=== PATIENT | male | born 1955 | race Caucasian/White ===

== ENCOUNTER 2016-10-25 07:48 | Inpatient (IN) | payer BC ==
[2016-10-21 14:42] VITALS: BMI 37.0
[~2016-10-25] VITALS: Ht 185.4 cm; Wt 128.6 kg
[2016-10-25] VITALS (9 sets, daily range): BP systolic 92–155; BP diastolic 61–117; PULSE 70–83; TEMP 34.8–36.9; O2SAT 94–99; Ht 185.4 cm; Wt 128.6 kg
--- NOTE | 2016-10-25 07:27 | History & Physical Bridge Note ---
H&P Re-Evaluation Bridge Note: I have examined the patient, reviewed the History & Physical and in the interval since the performance of the History & Physical I have noted the following changes of clinical significance: No changes noted
[~2016-10-25 07:48] MED LIST: APRE1TAB3 PO; CEFAZOLIN 3000 MG/65 ML D5W IV SCH; GABA-113 PO; HYDR-5688 PO; IBUP-1451 PO; LACTATED RINGER'S 1000ML 1,000 ML IV SCH; NXM/40 PO; PROP40TA5 PO; PRVC10 PO
--- NOTE | 2016-10-25 08:19 | HISTORY & PHYSICAL EXAMINATION ---
DATE OF ADMISSION: 10/25/2016 HISTORY OF PRESENT ILLNESS: The patient was seen in our office with about 2 weeks ago with complaint of pain starting 08/17/2016. No specific accident, trauma or fall. It then started to radiate down his right leg. He has been off work since 09/01/2012 secondary to the above-mentioned complaints. Pain involves the right buttock, lateral thigh to the knee. He reports his legs would go numbness as he walks or stands. Lying flat reproduces his pain also. He is most comfortable sitting while applying a heating pad and a pillow behind his back. He has had 2 issues over the past 2 weeks of waking up in the morning and losing control of his urine. No bowel changes. He still has a normal pressure and sensation, otherwise. He has been urged to lastly go to [place] if this happened again. He has trialed pain management injections in [place] with a maximum of 3 days of relief. Takes Motrin for pain control. PAST MEDICAL HISTORY: Significant for GERD, gout, and psoriasis. PAST SURGICAL HISTORY: Significant for knee replacement, hernia repair. ALLERGIES: None listed. MEDICATIONS: Motrin. SOCIAL HISTORY: He is . He still works. He uses chewing tobacco. Alcohol is beer occasionally. REVIEW OF SYSTEMS: Significant for fatigue and weakness, leg swelling, difficulty walking, headaches, muscle weakness and insomnia. FAMILY HISTORY: Noncontributory. PHYSICAL EXAMINATION: VITAL SIGNS: He is 6 feet 1 inch and 276 pounds. HEENT: Speech appropriate. CARDIOPULMONARY: No gross abnormalities. ABDOMEN: Soft, nontender. GENITOURINARY: Deferred. NEUROLOGIC: Cranial nerves II-XII grossly intact. MUSCULOSKELETAL: He is quite uncomfortable during our exam. He ambulates with an antalgic gait to the right. He is unable to toe walk and heel walk bilaterally. He has positive tension sign on the right. No evidence of ankle clonus. He has breakaway weakness over bilateral quadriceps, otherwise strength is intact. ASSESSMENT: Spondylolisthesis with the pars defect at L5-S1. L3-4 right-sided disc herniation creating severe right-sided neural foraminal stenosis. PLAN: At this point in time, we have reviewed surgical intervention sooner rather than later due to some of his urinary issues and pain. Surgery would require lumbar decompression with instrumented fusion L3-4, L4-5, and L5-S1. This would address his disc herniation at L3-4, his facet cyst at L4-5, and spondylolisthesis L5-S1. Risks, benefits, pros, and cons were outlined in detail. The patient would like to proceed with surgical planning. EFRA
[2016-10-25 08:35] LABS: BASO % 0.2 %; BASO ABS # 0.03 K/uL (0-0.2); EOS % 1.3 %; HEMATOCRIT 51.6 % (42-52); IG% 3.9 %; LYMPH % 19.9 %; LYMPH ABS # 3.17 K/uL (1.2-3.4); MEAN CELL VOLUME 90.7 fL (80-100); MEAN CORPUSCULAR HEMOGLOBIN 30.6 pg (25-34); MEAN PLATELET VOLUME 9.4 fL (7.4-10.4); NEUT % 66.7 %; PLATELET COUNT 154 K/uL (130-400); RED BLOOD COUNT 5.69 M/uL (4.7-6.1); WHITE BLOOD COUNT 15.96 K/uL (4.8-10.8)
[2016-10-25] MEDS ORDERED: DOCU100C PO (08:36)
[2016-10-25 09:13] LABS: BUN/CREATININE RATIO 13.9 (10-20); CALCIUM 8.8 mg/dl (8.5-10.1); CREATININE 0.99 mg/dl (0.60-1.40); POTASSIUM 3.7 mmol/L (3.5-5.1)
[2016-10-25] MEDS ORDERED: LACTATED RINGER'S 1000ML 1,000 ML IV PRN (09:20)
[2016-10-25] MEDS ORDERED: MoRPHine SULFATE 10 MG/ML CARP/VIAL IV PRN (09:30)
[2016-10-25] MEDS ORDERED: ONDANSETRON INJ 2 MG/ML 2 ML VIAL IV PRN ×2 (09:30→13:00)
[2016-10-25 09:34] LABS: COMPLETE YES; MEAN CORPUSCULAR HGB CONC 33.7 g/dl (32-36)
[2016-10-25] MEDS ORDERED: FENTANYL CITRATE INJ 50 MCG/1 ML 2 ML VIAL ONE ×6 (09:35→13:08)
[2016-10-25] MEDS ORDERED: MIDAZOLAM HCL 1 MG/ML 2ML VIAL ONE (09:35)
[2016-10-25] MEDS ORDERED: BACITRACIN 50000 UNIT VIAL ONE (09:52)
[2016-10-25] MEDS ORDERED: SODIUM CHLORIDE 0.9% PF 50 ML VIAL ONE (09:52)
[2016-10-25] MEDS ORDERED: BUPIVACAINE/EPINEPHRINE 0.5% MPF 1:200,000 30 ML VIAL ONE (09:52)
[2016-10-25] MEDS ORDERED: HYDROmorphone INJ 2 MG/ML SYR/VIAL ONE ×3 (10:43→13:08)
[2016-10-25] MEDS ORDERED: LIDOCAINE HCL 2% 2 ML VIAL (20MG/ML) ONE (11:44)
[2016-10-25] MEDS ORDERED: DEXAMETHASONE SOD INJ 4 MG/ML VIAL ONE (11:44)
[2016-10-25] MEDS ORDERED: ROCURONIUM BROMIDE 10 MG/ML 5 ML VIAL ONE (11:44)
[2016-10-25] MEDS ORDERED: PROPOFOL IV EMULSION 10 MG/ML 20 ML VIAL IV ONE (11:44)
[2016-10-25] MEDS ORDERED: SODIUM CHLORIDE 0.9% 1000ML 1,000 ML IV SCH (12:59)
--- NOTE | 2016-10-25 12:59 | [facility] Post Operative Brief Note ---
Immediate Operative Summary Operative Date Oct 25, 2016. Pre-Operative Diagnosis Spondylolisthesis with the pars defect at L5-S1. L3-4 right-sided disc herniation creating severe right-sided neural foraminal stenosis. Post-Operative Diagnosis Spondylolisthesis with the pars defect at L5-S1. L3-4 right-sided disc herniation creating severe right-sided neural foraminal stenosis. Procedure(s) Performed L3-S1 Lumbar Decompression, Posterior Spinal Fusion, Instrumentation, Interbody fusion with application of Interbody cage at L3-L4, L5-S1 Application of Ca and Bone Morphogenetic Protein Surgeon Dr. Yang Motor Equipment Commanding Officer Surgeon(s) Annamaria Escalera PA-C Estimated Blood Loss 900 mL Findings stenosis/hnp Specimens None per Surgeon
[2016-10-25] MEDS ORDERED: FAMOTIDINE 20 MG TAB PO PRN (13:00)
[2016-10-25] MEDS ORDERED: PROMETHAZINE HCL INJ 12.5 MG in SODIUM CHLORIDE 0.9% 50ML 50 ML IV PRN (13:00)
[2016-10-25] MEDS ORDERED: ALUMINUM/MAGNESIUM SUSP 30 ML UDC PO PRN (13:00)
[2016-10-25] MEDS ORDERED: LORAZEPAM INJ 0.5 MG in SYRINGE 0.75 ML IV PRN (13:00)
[2016-10-25] MEDS ORDERED: DO NOT ADMINISTER FLU VACCINE PRN ×3 (13:00)
[2016-10-25] MEDS ORDERED: HYDROmorphone INJ 0.5 MG/0.5 ML SYR IV PRN (13:00)
[2016-10-25] MEDS ORDERED: BISACODYL 10 MG SUPP PR PRN (13:00)
[2016-10-25] MEDS ORDERED: ACETAMINOPHEN 500 MG TAB PO PRN (13:00)
[2016-10-25] MEDS ORDERED: SOD PHOSPHATE/SOD BIPHOSPHATE ENEMA 132 ML BTL PR PRN (13:00)
[2016-10-25] MEDS ORDERED: NALOXONE HCL 0.4 MG/1 ML VIAL/CARP IV PRN ×2 (13:00)
[2016-10-25] MEDS ORDERED: hydrOXYzine HCL 25 MG TAB PO PRN (13:00)
[2016-10-25] MEDS ORDERED: ACETAMINOPHEN IV 100 ML IV PRN (13:00)
[2016-10-25] MEDS ORDERED: LORAZEPAM 0.5 MG TAB PO PRN (13:00)
[2016-10-25] MEDS ORDERED: METOCLOPRAMIDE HCL INJ 5 MG/ML 2 ML VIAL IV PRN (13:00)
[2016-10-25] MEDS ORDERED: DO NOT ADMINISTER PNEUMOCOCCAL VACCINE PRN ×2 (13:00)
[2016-10-25] MEDS ORDERED: MAGNESIUM HYDROXIDE SUSP 30 ML UDC PO PRN (13:00)
[2016-10-25] MEDS ORDERED: FLOSEAL HEMOSTATIC MATRIX 10ML TOP ONE (13:03)
[2016-10-25] MEDS ORDERED: NEOSTIGMINE METHYLSULFATE 1 MG/ML 10ML VIAL ONE (13:09)
[2016-10-25] MEDS ORDERED: EpHEDrine SULFATE 50MG/5ML SYR ONE (13:09)
[2016-10-25] MEDS ORDERED: PHENYLEPHRINE 100MCG/ML 5ML SYR ONE (13:09)
[2016-10-25] MEDS ORDERED: KETOROLAC TROMETHAMINE 30 MG/ML VIAL ONE (13:09)
[2016-10-25] MEDS ORDERED: GLYCOPYRROLATE INJ 0.2 MG/ML VIAL ONE (13:09)
[2016-10-25] MEDS ORDERED: ONDANSETRON INJ 2 MG/ML 2 ML VIAL ONE (13:09)
--- NOTE | 2016-10-25 13:15 | DIAGNOSTIC IMAGING REPORT ---
INTRAOPERATIVE RADIOGRAPHS CLINICAL HISTORY: L3-S1 spinal fusion. Fluoroscopy time: 32 seconds. FINDINGS: 2 spot fluoroscopic views of the lumbar spine are presented. There is evidence of discectomy at L3-L4 and L5-S1. There as been laminectomy and posterior fusion from L3 -S1. Interpedicular screws are present at all levels. The orthopedic hardware appears intact. IMPRESSION: Intraoperative images from L3 -S1 spinal fusion as above. Electronically signed by: Brant Mccarty M.D. 10/25/2016 1:13 PM Dictated Date/Time: 10/25/2016 1:12 PM
[2016-10-25] MEDS ORDERED: HYDROmorphone HCL 0.5MG/ML 50 ML CASSETTE ONE (13:24)
--- NOTE | 2016-10-25 13:24 | OPERATIVE REPORT ---
DATE OF OPERATION: 10/25/2016 PREOPERATIVE DIAGNOSES: Spinal stenosis, herniated nucleus pulposus with spondylolisthesis. POSTOPERATIVE DIAGNOSES: Same. PROCEDURES PERFORMED: 1. Lumbar decompression and medial facetectomy and foraminotomy L2-L3, L3-L4, L4-L5, L5-S1. 2. Posterior spinal fusion L3-L4, L4-L5, L5-S1. 3. Placement of posterior segmental instrumentation using Orthros rods and screws, L3-L4, L4-L5 and L5-S1 including a crosslink. 4. Interbody fusion L3-L4 and L5-S1. 5. Placement of PEEK cage 15 x 26 at L3-L4 and 15 x 26 at L5-S1. 6. Placement of locally harvested morselized autograft in posterior gutters. 7. Placement of Infuse collagen sponge combined with Mastergraft in posterior gutters and Ca bone grafting in the interbody spaces. SURGEON: Dr. Carlos Yang. DIRECTOR OF RESEARCH CENTER: DENA Lizama. Due to the complex nature of the procedure, the entire surgery was performed with the golf player assistant of DENA Lizama. The speech language pathology assistant, under direct supervision, was involved in the actual performance of all aspects of the surgical procedure including hemostasis, tissue retraction and incision, instrument management, patient positioning, and wound closure. ANESTHESIA: General. DISPOSITION: The patient was awakened and taken to PACU in stable condition. HISTORY OF PATIENT'S PROBLEMS: This is a 61-year-old male who presents with above-mentioned diagnoses. After failing an extensive course of nonoperative care, elected to undergo the above-mentioned procedure. Risks, benefits, pros, cons, and alternatives were outlined in detail preoperatively. DESCRIPTION OF PROCEDURE: The patient was met with preoperatively, case discussed and all questions were addressed. At that point, patient was taken back to the operative suite and after undergoing successful general intubation by the department of anesthesia, he was placed in prone position on [place] table atop Atif frame. All bony prominences were well padded and the eyes were inspected to ensure there was no external pressure placed upon them. At this point, lumbar spine was prepped and draped in normal sterile fashion. Sharp dissection with the assistance of Bovie cautery was performed down to and exposing the lamina and transverse processes of L3, L4, L5 and sacral ala bilaterally. From a caudal to cephalad fashion, complete laminectomy of L5, L4, L3 and partial laminectomy of L2 was performed addressing severe lateral recess stenosis, foraminal disease at L3-L4 and an obvious pars defect at L5-S1 level bilaterally. Pedicle screws were then placed in L3, L4, L5 and S1 levels bilaterally with assistance of fluoroscopy, and appropriate size gato provisionally placed. Through a transforaminal approach on the right, a complete discectomy of L5-S1 was performed, endplates curetted to subcortical bleeding bone and a 15 x 26 mm PEEK cage filled with Ca bone grafting tapped into position. I then proceeded to L3-L4 and again through a transforaminal approach on the right, a complete discectomy was performed, endplates curetted to subcortical bleeding bone and a 15 x 26 mm PEEK cage filled with Ca bone grafting tapped into position. Rods were then compressed, locked into final position bilaterally including a crosslink inserted and placed. The transverse processes of L3, L4, L5 and sacral ala were then burred to subcortical bleeding bone. Infuse collagen sponge combined with Mastergraft and locally harvested morselized autograft was placed in the posterior gutters. A 7 flat YNES drain was inserted. Incision was closed with 1-0 Vicryl in the fascia, 2-0 Vicryl subcutaneously, 4-0 Monocryl for final skin closure. Steri-Strips and sterile dressing placed. The patient was awakened and taken to PACU in stable condition. I attest to the content of the Intraoperative Record and any orders documented therein. Any exceptio ns are noted below.
[2016-10-25] MEDS: FENTANYL CITRATE INJ 50 MCG/1 ML 2 ML VIAL IV PRN ×2 (13:35→13:40)
--- NOTE | 2016-10-25 14:49 | Anesthesiology Progress Note ---
Anesthesia Post Op Note Date & Time Oct 25, 2016 at 14:49 Vital Signs Pain Intensity: 0 Vital Signs Past 12 Hours Date Time Temp Pulse Resp B/P Pulse Ox O2 Delivery O2 Flow Rate FiO2 10/25/16 14:25 71 16 127/72 98 Nasal Cannula 3 10/25/16 14:15 73 14 143/92 96 Nasal Cannula 3 10/25/16 14:05 36.5 85 14 128/97 95 Nasal Cannula 3 10/25/16 13:55 71 14 133/84 95 Mask 5 10/25/16 13:45 67 16 120/85 95 Mask 10 10/25/16 13:35 80 16 116/84 97 Mask 10 10/25/16 13:25 36.5 82 16 113/78 94 Mask 10 10/25/16 08:29 36.4 74 20 136/92 96 Room Air Notes Mental Status: alert / awake / arousable, participated in evaluation Pt Amnestic to Procedure: Yes Nausea / Vomiting: adequately controlled Pain: adequately controlled Airway Patency, RR, SpO2: stable & adequate BP & HR: stable & adequate Hydration State: stable & adequate Anesthetic Complications: no major complications apparent
[2016-10-25] MEDS: HYDROmorphone HCL 0.5MG/ML 50 ML CASSETTE IV PRN ×2 (15:20→22:52)
[2016-10-25] MEDS ORDERED: HYDROmorphone INJ 1 MG/ML SYR IV PRN (15:30)
[2016-10-25] MEDS: GABAPENTIN 300 MG CAP PO SCH ×2 (16:54→20:34)
[2016-10-25] MEDS: LACTATED RINGER'S 1000ML 1,000 ML IV SCH ×2 (16:55→20:39)
[2016-10-25] MEDS: PROPRANOLOL HCL 80 MG TAB PO SCH ×2 (16:55→20:34)
[2016-10-25] MEDS: CEFAZOLIN IV 3,000 MG in DEXTROSE 5% 50ML 50 ML IV SCH (18:36)
[2016-10-25] MEDS: DEXAMETHASONE INJ 6 MG in SYRINGE 0 ML IV SCH (18:37)
--- NOTE | 2016-10-25 18:58 | Medical Consult ---
Consultation Date of Consultation: Oct 25, 2016. Attending Physician: Carlos Yang D.O. Reason for Consultation: medical mgmt History of Present Illness This is a 61 y/o male with PMHx of Spinal Stenosis/HNP, HTN, Dyslipidemia and other problems as outlined below who presents POD o s/p lumbar decompression performed by Dr. Yang. Pt is currently rating his back pain at an 8/10 however he is not using the dry cell tester as much as he could be as he keeps dosing off. The medicine does give him adequate relief when he uses it. Pt just finished his dinner with no issues. Pt has chronic LE edema due to venous insufficiency. Pt denies chest pain, SOB, abd pain, N/V, bowel or bladder issues, worsening LE edema, calf pain, lightheadedness/dizziness. Past Medical/Surgical History Medical Problems: (1) Dyslipidemia Status: Chronic (2) GERD (gastroesophageal reflux disease) Status: Chronic (3) HTN (hypertension) Status: Chronic (4) Psoriasis Status: Chronic Surgical Problems: (1) History of inguinal hernia repair Status: Resolved (2) S/P right knee arthroscopy Status: Resolved Social History Smoking Status: Never Smoker Alcohol Use: occasionally Drug Use: none Housing Status: lives with family Allergies Coded Allergies: No Known Allergies (Unverified , 10/25/16) Home Medications Active Reported Stool Softener (Docusate Sodium) 100 Mg Cap 100 Mg PO BID PRN Grethel 5MG/325MG (Acetaminophen/Hydrocodone Bitart) Tab 1 Tab PO QID 30 Days PRN PAIN Pravastatin Sodium (Pravastatin Sod) 10 Mg Tab 10 Mg PO HS Motrin (Ibuprofen) 800 Mg Tab 800 Mg PO HS PRN Propranolol Hcl 40 Mg Tab 1 Tab PO TID Otezla (Apremilast) 30 Mg Tab 30 Mg PO BID Neurontin (Gabapentin) 300 Mg Cap 300 Mg PO TID Nexium (Esomeprazole Magnesium) 40 Mg Capcr 40 Mg PO QAM Current Inpatient Medications Current Inpatient Medications Medications (Trade) Dose Ordered Sig/Be Route Start Time Stop Time Status Last Admin Dose Admin Dexamethasone Sodium Phosphate 6 mg/Syringe 1.5 ml @ 1 mls/min Q8H IV 10/25/16 18:00 10/26/16 10:02 10/25/16 18:37 1 MLS/MIN Promethazine HCl/ Sodium Chloride (Phenergan Inj/ Nss 50ml) 50.5 ml @ 202 mls/hr Q6H PRN IV 10/25/16 13:00 11/24/16 12:59 Ondansetron HCl (Zofran Inj) 4 mg Q6H PRN IV 10/25/16 13:00 11/24/16 12:59 Metoclopramide HCl (Reglan Inj) 10 mg Q6H PRN IV 10/25/16 13:00 11/24/16 12:59 Lorazepam 0.5 mg 0.5 mg Q8H PRN PO 10/25/16 13:00 11/24/16 12:59 Lorazepam/Syringe (Ativan Inj/ Syringe) 1 ml @ 1 mls/min Q8H PRN IV 10/25/16 13:00 11/24/16 12:59 Pneumococcal Polysaccharide Vaccine 1 ea PRN PRN N/A 10/25/16 13:00 11/24/16 12:59 Influenza Virus Vacc Triv Types A&B 1 ea PRN PRN N/A 10/25/16 13:00 11/24/16 12:59 Polyethylene (Miralax Powder Packet) 17 gm Q6 PO 10/27/16 06:00 11/26/16 05:59 Bisacodyl (Dulcolax Supp) 10 mg DAILY PRN MO 10/25/16 13:00 11/24/16 12:59 Magnesium Hydroxide (Milk Of Magnesia Susp) 30 ml DAILY PRN PO 10/25/16 13:00 11/24/16 12:59 Hydromorphone HCl (Dilaudid Inj) 0.5 mg Q3H PRN IV 10/25/16 13:00 11/08/16 12:59 Future hold Oxycodone HCl 5-10mg prn moderate to sev... Q4H PRN PO 10/26/16 06:00 11/09/16 05:59 Cefazolin Sodium 3000 mg/Dextrose 65 ml @ 100 mls/hr Q8H IV 10/25/16 18:00 10/26/16 02:38 10/25/16 18:36 100 MLS/HR Lactated Ringer's (Lr 1000ml) 1,000 ml @ 150 mls/hr Q6H40M IV 10/25/16 12:59 11/24/16 12:58 10/25/16 16:55 150 MLS/HR Acetaminophen 1000 mg 1,000 mg Q8H PRN PO 10/25/16 13:00 11/24/16 12:59 Acetaminophen (Ofirmev Iv) 100 ml @ 400 mls/hr Q8H PRN IV 10/25/16 13:00 11/24/16 12:59 Naloxone HCl (Narcan Inj) 0.1 mg Q5M PRN IV 10/25/16 13:00 11/24/16 12:59 Senna/Docusate Sodium (Senokot S Tab) 2 tab HS PO 10/25/16 21:00 11/24/16 20:59 Sodium Biphosphate/ Sodium Phosphate (Fleet Enema) 132 ml ONE PRN MO 10/25/16 13:00 11/24/16 12:59 Hydroxyzine HCl (Vistaril Tab) 25 mg Q8H PRN PO 10/25/16 13:00 11/24/16 12:59 Al Hydroxide/Mg Hydroxide (Maalox Susp) 30 ml Q6H PRN PO 10/25/16 13:00 11/24/16 12:59 Famotidine (Pepcid Tab) 20 mg Q12 PRN PO 10/25/16 13:00 11/24/16 12:59 Diphenhydramine HCl (Benadryl Cap) 25 mg Q6H PRN PO 10/25/16 13:00 11/24/16 12:59 Miscellaneous Information (Discontinue ELECTRONICS DESIGN ENGINEER) 1 ea TODAY@0600 PRN N/A 10/26/16 06:00 10/26/16 06:01 Naloxone HCl (Narcan Inj) 0.1 mg Q5M PRN IV 10/25/16 13:00 10/26/16 06:00 Hydromorphone HCl 25 mg 25 mg PRN PRN IV 10/25/16 13:00 10/26/16 06:00 10/25/16 15:20 25 MG Sodium Chloride (Nss 1000ml) 1,000 ml @ 15 mls/hr Q24H IV 10/25/16 12:59 10/26/16 06:00 Gabapentin (Neurontin Cap) 300 mg TID PO 10/25/16 14:00 11/24/16 13:59 10/25/16 16:54 300 MG Pravastatin Sodium (Pravachol Tab) 10 mg HS PO 10/25/16 21:00 11/24/16 20:59 Pantoprazole Sodium (Protonix Tab) 40 mg QAM PO 10/26/16 09:00 11/25/16 08:59 Propranolol HCl (Inderal Tab) 40 mg TID PO 10/25/16 14:00 11/24/16 13:59 10/25/16 16:55 40 MG Hydromorphone HCl (Dilaudid Inj) 1 mg Q3H PRN IV 10/25/16 15:30 11/08/16 15:29 Future hold Non-Formulary Medication (Non-Formulary Patient'S Own Med) 1 ea BID PO 10/25/16 21:00 11/24/16 20:59 Review of Systems Constitutional: + fatigue, No chills, No fever, No sweats, No weakness Eyes: No worsening of vision Respiratory: No cough, No shortness of breath Cardiovascular: + edema (chronic), No chest pain, No claudication Abdomen: No constipation, No diarrhea, No nausea, No pain, No vomiting Musculoskeletal: No calf pain Genitourinary - Male: + problem reported (lechuga) Neurologic: No weakness Psychiatric: No depression symptoms Endocrine: + fatigue Hematologic / Lymphatic: No abnormal bleeding/bruising Integumentary: No new/changing skin lesions Physical Exam Date Time Temp Pulse Resp B/P Pulse Ox O2 Delivery O2 Flow Rate FiO2 10/25/16 17:40 36.9 81 19 109/80 98 Nasal Cannula 4.0 10/25/16 16:43 36.5 83 16 155/117 97 Nasal Cannula 4.0 10/25/16 15:40 36.3 70 18 139/95 99 Nasal Cannula 4.0 10/25/16 15:10 34.8 72 20 137/93 99 Nasal Cannula 4.0 10/25/16 15:00 94 Nasal Cannula 4.0 10/25/16 14:40 36.3 77 18 92/61 94 Nasal Cannula 4.0 10/25/16 14:40 94 Nasal Cannula 4.0 10/25/16 14:25 71 16 127/72 98 Nasal Cannula 3 10/25/16 14:15 73 14 143/92 96 Nasal Cannula 3 10/25/16 14:05 36.5 85 14 128/97 95 Nasal Cannula 3 10/25/16 13:55 71 14 133/84 95 Mask 5 10/25/16 13:45 67 16 120/85 95 Mask 10 10/25/16 13:35 80 16 116/84 97 Mask 10 10/25/16 13:25 36.5 82 16 113/78 94 Mask 10 10/25/16 08:29 36.4 74 20 136/92 96 Room Air General Appearance: WD/WN, no apparent distress, + obese, + pertinent finding ( Pt is laying comfortably in bed; drowsy) Head: normocephalic, atraumatic Eyes: normal inspection ENT: hearing grossly normal Neck: supple Respiratory/Chest: chest non-tender, no respiratory distress, + pertinent finding (course breath sounds) Cardiovascular: regular rate, rhythm, no murmur Abdomen/GI: normal bowel sounds, non tender, soft Back: + pertinent finding (surgical dressing in place over lumbar spine with 1 drain noted containing blood) Extremities/Musculoskelatal: normal inspection, no calf tenderness, + swelling (2+ pitting pedal edema bilat; SCDs in place bilat) Neurologic/Psych: alert, normal mood/affect, oriented x 3 Skin: normal color, warm/dry Laboratory Results Last 24 Hours Test 10/25/16 08:10 White Blood Count 15.96 K/uL Red Blood Count 5.69 M/uL Hemoglobin 17.4 g/dL Hematocrit 51.6 % Mean Corpuscular Volume 90.7 fL Mean Corpuscular Hemoglobin 30.6 pg Mean Corpuscular Hemoglobin Concent 33.7 g/dl Platelet Count 154 K/uL Mean Platelet Volume 9.4 fL Neutrophils (%) (Auto) 66.7 % Lymphocytes (%) (Auto) 19.9 % Monocytes (%) (Auto) 8.0 % Eosinophils (%) (Auto) 1.3 % Basophils (%) (Auto) 0.2 % Neutrophils # (Auto) 10.65 K/uL Lymphocytes # (Auto) 3.17 K/uL Monocytes # (Auto) 1.27 K/uL Eosinophils # (Auto) 0.21 K/uL Basophils # (Auto) 0.03 K/uL RDW Standard Deviation 53.0 fL RDW Coefficient of Variation 16.0 % Immature Granulocyte % (Auto) 3.9 % Immature Granulocyte # (Auto) 0.63 K/uL Sodium Level 138 mmol/L Potassium Level 3.7 mmol/L Chloride Level 101 mmol/L Carbon Dioxide Level 28 mmol/L Anion Gap 9.0 mmol/L Blood Urea Nitrogen 14 mg/dl Creatinine 0.99 mg/dl Est Creatinine Clear Calc Drug Dose 112.9 ml/min Estimated GFR () 96.2 Estimated GFR (Non- 83.0 BUN/Creatinine Ratio 13.9 Random Glucose 89 mg/dl Calcium Level 8.8 mg/dl Assessment & Plan SPINAL STENOSIS/HNP S/P LUMBAR DECOMPRESSION -POD 0; surgery performed by Dr. Yang -post-operative pain well managed -monitor for acute blood loss with daily H&H -pt encouraged to utilize spirometry to prevent post-op infection -PT/OT -activity and wound care orders per ortho protocol -will continue to follow PSORIASIS -cont Otezla MIGRAINES -cont Propranolol DYSLIPIDEMIA -cont statin DVT PROPHYLAXIS -per ortho protocol CODE STATUS -FULL CODE status DISPO -per ortho. Pt seen in collaboration with Dr. Chin. Please see her addendum for further details. Thanks! ADDENDUM: I have seen and examined the patient and have discussed the case with the provider above. I agree with the assessment and plan as stated. Pt is doing well, tolerating PO, pain is controlled. Meron Chin,
[2016-10-25] MEDS ORDERED: DOCUSATE SODIUM/SENNA 50/8.6MG TAB PO SCH (21:00)
[2016-10-25] MEDS ORDERED: OTEZLA PO SCH (21:00)
[2016-10-25] MEDS ORDERED: PRAVASTATIN SOD 10 MG TAB PO SCH (21:00)
[2016-10-26] MEDS: CEFAZOLIN IV 3,000 MG in DEXTROSE 5% 50ML 50 ML IV SCH (02:02)
[2016-10-26] MEDS: DEXAMETHASONE INJ 6 MG in SYRINGE 0 ML IV SCH (02:02)
[2016-10-26] MEDS: LACTATED RINGER'S 1000ML 1,000 ML IV SCH (02:02)
[2016-10-26 03:00] VITALS: BP 113/72; PULSE 77; TEMP 36.5; O2SAT 96
[2016-10-26] MEDS ORDERED: DC PCA PRN (06:00)
[2016-10-26] MEDS ORDERED: OXYCODONE HCL IR 5 MG TAB (IMMEDIATE RELEASE) PO PRN (06:00)
[2016-10-26] MEDS ORDERED: NURSING VERBAL MED ORDER ONE (06:30)
[2016-10-26 07:12] LABS: BUN/CREATININE RATIO 18.3 (10-20); CALCIUM 8.1 mg/dl (8.5-10.1); CREATININE 0.98 mg/dl (0.60-1.40)
[2016-10-26 07:15] LABS: BASO ABS # 0.01 K/uL (0-0.2); COMPLETE YES; IG% 1.1 %; LYMPH % 3.6 %; LYMPH ABS # 0.84 K/uL (1.2-3.4); MONO % 5.6 %; NEUT % 89.7 %
[2016-10-26 07:41] VITALS: BP 109/74; PULSE 76; TEMP 36.6; O2SAT 97
--- NOTE | 2016-10-26 07:45 | Anesthesiology Progress Note ---
Anesthesia Post Op Note Date & Time Oct 26, 2016 at 07:45 Vital Signs Pain Intensity: 9.0 Vital Signs Past 12 Hours Date Time Temp Pulse Resp B/P Pulse Ox O2 Delivery O2 Flow Rate FiO2 10/26/16 07:41 36.6 76 16 109/74 97 Room Air 10/26/16 03:00 36.5 77 22 113/72 96 Nasal Cannula 2.0 10/26/16 00:10 Nasal Cannula 2.0 10/25/16 23:11 36.7 74 18 116/80 98 Room Air Notes Mental Status: alert / awake / arousable, participated in evaluation Pt Amnestic to Procedure: Yes Nausea / Vomiting: adequately controlled Pain: adequately controlled Airway Patency, RR, SpO2: stable & adequate BP & HR: stable & adequate Hydration State: stable & adequate Anesthetic Complications: no major complications apparent
[2016-10-26 08:30] LABS: RED BLOOD COUNT 4.03 M/uL (4.7-6.1); WHITE BLOOD COUNT 23.23 K/uL (4.8-10.8)
[2016-10-26 08:31] LABS: MEAN CELL VOLUME 89.3 fL (80-100); MEAN CORPUSCULAR HEMOGLOBIN 29.8 pg (25-34); MEAN CORPUSCULAR HGB CONC 33.3 g/dl (32-36); PLATELET COUNT 159 K/uL (130-400)
[2016-10-26] MEDS ORDERED: PANTOprazole SOD 40 MG TAB PO SCH (09:00)
[2016-10-26] MEDS ORDERED: ATROPINE SULFATE 0.1 MG/ML 10 ML SYR IV ONE (09:24)
[2016-10-26] MEDS ORDERED: VASOPRESSIN 20 UNIT/ML VIAL IV ONE (09:24)
[2016-10-26] MEDS ORDERED: SODIUM CHLORIDE 0.9% 10ML FLUSH IV ONE (09:24)
[2016-10-26] MEDS ORDERED: RAPID SEQUENCE INDUCTION BAG ONE (09:40)
--- NOTE | 2016-10-26 09:49 | Procedure Note ---
Procedure Note Date of Service Oct 26, 2016. Procedure Note CODE BLUE: Time 8:53am Called to room 308 for code blue Code being run by Nilo and taken over by me on arrival. Pt Attending: Dr Yang - being contacted during code. Code Status: Full per Nursing Brief summary: 61 yr old male s/p low back surgery yesterday. No reported renal issues, no known cardiac history, no known dvt/pe history. Last narcotic >2 hours ago. Awoke this morning. Ate breakfast and went to bathroom. On recheck patient with respiratory difficulty, proceeding to code purple, then code blue. Presumed respiratory arrest. Already epi, compressions prior to my arrival. Access: 18 and 20 G IV's bilateral arms, both flushing well. Advanced Airway: Anesthesia arrived within a minute or two of my arrival and defer intubation to them. Shortly prior to intubation patient with ROSC though confused, disoriented with agonal respirations. Thready pulse throughout. Clearly needed to be intubated. Anesthesia noted some food in airway though no significant aspiration in lungs and there is nothing by ET Tube. With intubation unable to get O2 sats above 82%. Appropriate ACLS protocol followed and patient with multiple rounds of cardiac arrest, with just brief episodes of ROSC, usually erik to asystole with episodes of PEA, Aflutter, Tachycardia. Dr Gunter arrived and we discussed case thus far, agreed with continued ACLS. Dr Gunter attempted right fem line though unable to obtain access and right humeral IO placed by IV team. Patient with PEA once again and throughout multiple rounds EPI, Bicarb, Ca given along with excellent compressions. Unable to obtain ROSC. Bedside US by Dr Gunter consistent with no cardiac movement. Erik PEA converted to asystole on monitor. No neuro response. Dr Gunter and I both felt that further ACLS would be futile, thus code was called and patient pronounced at 9:25am. Dr Gunter to contact family. Dandre Chin MD
--- NOTE | 2016-10-26 10:38 | Critical Care Consultation ---
Critical Care Consultation Date of Consultation: Oct 26, 2016. Attending Physician: Carlos Yang D.O. Reason for Consultation: Cardiac arrest History of Present Illness Patient is a 61-year-old male without significant past medical history who per nursing report 8 breakfast, had a full conversation with his via telephone went to the bathroom. Upon return from the commode patient was having respiratory distress, a code purple was called. The respiratory distress continued to a full respiratory arrest leading to cardiac arrest, pulseless electrical activity. Upon my arrival the code was being run by Dr. Chin, patient had received multiple rounds of ACLS drugs, active CPR was in progress. Please see code sheet and other provider records for further details. Past Medical/Surgical History Postoperative day 1 from a posterior spinal fusion Social History Smoking Status: Never Smoker Alcohol Use: occasionally Drug Use: none Housing Status: lives with family Allergies Coded Allergies: No Known Allergies (Unverified , 10/25/16) Home Medications Scheduled Apremilast (Otezla), 30 MG PO BID Esomeprazole Magnesium (Nexium), 40 MG PO QAM Gabapentin (Neurontin), 300 MG PO TID Hydrocodone/Acetaminophen 5MG/325MG ([place] 5MG/325MG), 1 TAB PO QID Pravastatin Sod (Pravastatin Sodium), 10 MG PO HS Propranolol Hcl (Propranolol Hcl), 1 TAB PO TID Scheduled PRN Docusate Sodium (Stool Softener), 100 MG PO BID PRN for Constipation Ibuprofen Tab (Motrin), 800 MG PO HS PRN for Pain Current Inpatient Medications Current Inpatient Medications Medications (Trade) Dose Ordered Sig/Be Route Start Time Stop Time Status Last Admin Dose Admin Promethazine HCl/ Sodium Chloride (Phenergan Inj/ Nss 50ml) 50.5 ml @ 202 mls/hr Q6H PRN IV 10/25/16 13:00 11/24/16 12:59 Ondansetron HCl (Zofran Inj) 4 mg Q6H PRN IV 10/25/16 13:00 11/24/16 12:59 Metoclopramide HCl (Reglan Inj) 10 mg Q6H PRN IV 10/25/16 13:00 11/24/16 12:59 Lorazepam 0.5 mg 0.5 mg Q8H PRN PO 10/25/16 13:00 11/24/16 12:59 Lorazepam/Syringe (Ativan Inj/ Syringe) 1 ml @ 1 mls/min Q8H PRN IV 10/25/16 13:00 11/24/16 12:59 Pneumococcal Polysaccharide Vaccine 1 ea PRN PRN N/A 10/25/16 13:00 11/24/16 12:59 Influenza Virus Vacc Triv Types A&B 1 ea PRN PRN N/A 10/25/16 13:00 11/24/16 12:59 Polyethylene (Miralax Powder Packet) 17 gm Q6 PO 10/27/16 06:00 11/26/16 05:59 Bisacodyl (Dulcolax Supp) 10 mg DAILY PRN LA 10/25/16 13:00 11/24/16 12:59 Magnesium Hydroxide (Milk Of Magnesia Susp) 30 ml DAILY PRN PO 10/25/16 13:00 11/24/16 12:59 Hydromorphone HCl (Dilaudid Inj) 0.5 mg Q3H PRN IV 10/25/16 13:00 11/08/16 12:59 Future hold Oxycodone HCl (Roxicodone Immediate Rel Tab) 5-10mg prn moderate to sev... Q4H PRN PO 10/26/16 06:00 11/09/16 05:59 Acetaminophen 1000 mg 1,000 mg Q8H PRN PO 10/25/16 13:00 11/24/16 12:59 Acetaminophen (Ofirmev Iv) 100 ml @ 400 mls/hr Q8H PRN IV 10/25/16 13:00 11/24/16 12:59 Naloxone HCl (Narcan Inj) 0.1 mg Q5M PRN IV 10/25/16 13:00 11/24/16 12:59 Senna/Docusate Sodium (Senokot S Tab) 2 tab HS PO 10/25/16 21:00 11/24/16 20:59 10/25/16 20:35 2 TAB Sodium Biphosphate/ Sodium Phosphate (Fleet Enema) 132 ml ONE PRN LA 10/25/16 13:00 11/24/16 12:59 Hydroxyzine HCl (Vistaril Tab) 25 mg Q8H PRN PO 10/25/16 13:00 11/24/16 12:59 Al Hydroxide/Mg Hydroxide (Maalox Susp) 30 ml Q6H PRN PO 10/25/16 13:00 11/24/16 12:59 Famotidine (Pepcid Tab) 20 mg Q12 PRN PO 10/25/16 13:00 11/24/16 12:59 Diphenhydramine HCl (Benadryl Cap) 25 mg Q6H PRN PO 10/25/16 13:00 11/24/16 12:59 Gabapentin (Neurontin Cap) 300 mg TID PO 10/25/16 14:00 11/24/16 13:59 10/25/16 20:34 300 MG Pravastatin Sodium (Pravachol Tab) 10 mg HS PO 10/25/16 21:00 11/24/16 20:59 10/25/16 20:32 10 MG Pantoprazole Sodium (Protonix Tab) 40 mg QAM PO 10/26/16 09:00 11/25/16 08:59 Propranolol HCl (Inderal Tab) 40 mg TID PO 10/25/16 14:00 11/24/16 13:59 10/25/16 20:34 40 MG Hydromorphone HCl (Dilaudid Inj) 1 mg Q3H PRN IV 10/25/16 15:30 11/08/16 15:29 Future hold Non-Formulary Medication (Non-Formulary Patient'S Own Med) 1 ea BID PO 10/25/16 21:00 11/24/16 20:59 10/25/16 20:35 1 EA Review of Systems Review of systems unable to obtain secondary to patient condition Physical Exam Date Time Temp Pulse Resp B/P Pulse Ox O2 Delivery O2 Flow Rate FiO2 10/26/16 07:41 36.6 76 16 109/74 97 Room Air 10/26/16 03:00 36.5 77 22 113/72 96 Nasal Cannula 2.0 10/26/16 00:10 Nasal Cannula 2.0 10/25/16 23:11 36.7 74 18 116/80 98 Room Air 10/25/16 19:30 36.5 82 18 106/67 99 Nasal Cannula 4.0 10/25/16 17:40 36.9 81 19 109/80 98 Nasal Cannula 4.0 10/25/16 16:43 36.5 83 16 155/117 97 Nasal Cannula 4.0 10/25/16 15:40 36.3 70 18 139/95 99 Nasal Cannula 4.0 10/25/16 15:25 Nasal Cannula 4.0 10/25/16 15:10 34.8 72 20 137/93 99 Nasal Cannula 4.0 10/25/16 15:00 94 Nasal Cannula 4.0 10/25/16 14:40 36.3 77 18 92/61 94 Nasal Cannula 4.0 10/25/16 14:40 94 Nasal Cannula 4.0 10/25/16 14:25 71 16 127/72 98 Nasal Cannula 3 10/25/16 14:15 73 14 143/92 96 Nasal Cannula 3 10/25/16 14:05 36.5 85 14 128/97 95 Nasal Cannula 3 10/25/16 13:55 71 14 133/84 95 Mask 5 10/25/16 13:45 67 16 120/85 95 Mask 10 10/25/16 13:35 80 16 116/84 97 Mask 10 10/25/16 13:25 36.5 82 16 113/78 94 Mask 10 Physical exam limited to acuity of condition General Appearance: severe distress (active CPR in progress) ENT: other (intubated) Neck: other (no JVD) Respiratory: other (breath sounds bilaterally, easy to bag) Cardiovasular: abnormal pulses (pulses only with CPR) Abdomen: no organomegaly Genitourinary - Male: other (Fried present) Back: other (drain and back with approximately 200 ML's of fluid) Upper Extremities: other (IV access in bilateral upper extremities with fluids infusing) Lower Extremities: other (capillary refill greater than 3 seconds) Pulses: femoral (R) (1+, only with active chest compressions) Neuro: other (unresponsive) Laboratory Results Last 24 Hours Test 10/26/16 05:43 10/26/16 08:49 White Blood Count 23.23 K/uL Red Blood Count 4.03 M/uL Hemoglobin 12.0 g/dL Hematocrit 36.0 % Mean Corpuscular Volume 89.3 fL Mean Corpuscular Hemoglobin 29.8 pg Mean Corpuscular Hemoglobin Concent 33.3 g/dl Platelet Count 159 K/uL Neutrophils (%) (Auto) 89.7 % Lymphocytes (%) (Auto) 3.6 % Monocytes (%) (Auto) 5.6 % Eosinophils (%) (Auto) 0.0 % Basophils (%) (Auto) 0.0 % Neutrophils # (Auto) 20.80 K/uL Lymphocytes # (Auto) 0.84 K/uL Monocytes # (Auto) 1.31 K/uL Eosinophils # (Auto) 0.01 K/uL Basophils # (Auto) 0.01 K/uL Immature Granulocyte % (Auto) 1.1 % Immature Granulocyte # (Auto) 0.26 K/uL Red Blood Cell Morphology Unremarkable Sodium Level 137 mmol/L Potassium Level 5.0 mmol/L Chloride Level 102 mmol/L Carbon Dioxide Level 27 mmol/L Anion Gap 8.0 mmol/L Blood Urea Nitrogen 18 mg/dl Creatinine 0.98 mg/dl Est Creatinine Clear Calc Drug Dose 114.1 ml/min Estimated GFR () 97.4 Estimated GFR (Non- 84.1 BUN/Creatinine Ratio 18.3 Random Glucose 139 mg/dl Calcium Level 8.1 mg/dl Bedside Glucose 147 mg/dl Diagnostic Results Limited bedside cardiac ultrasound: Patient had received over 20 minutes of active CPR, routine was routinely PEA, bradycardic, with last pulse check there was no active cardiac contractility. Assessment & Plan Patient is a 61-year-old male without significant past medical history is postop day 1 from a posterior spinal fusion. Patient had sudden respiratory distress leading to respiratory arrest and ultimately cardiac arrest. Patient was given multiple rounds of ACLS drugs, greater than 20 minutes of active chest compressions. As I discussed with Dr. Chin the likelihood of patient' s survival was minimal, he was not a candidate for TPA given major surgery and would likely exsanguinate, and all further resuscitative efforts were stopped and the patient at 09:25. I was able to complete a limited bilateral venous compression there was extensive thrombus in the left posterior tibial vein, the right and left common femorals are both completely compressible, the right tibial was compressible. Likely cause of was massive pulmonary embolism secondary to left DVT. I have updated the family, the patient's daughter and son-in-law are currently on their way to the hospital. I have tentatively requested a autopsy and referred the case to the resident caregiver's office. I have also paged Dr. Yang. I have personally spent 40 minutes of critical care time in the direct management of this patient. This is a life/limb threatening event. This includes time spent evaluating patient, direct bedside care, chart review, placing orders, interpretation of diagnostic studies, discussion with consultants, patient, and family members, as well as other required patient management activities. This time is exclusive of all separately billable procedures, and teaching time and separate from and in addition to any other critical care service time.
--- NOTE | 2016-10-26 11:44 | Progress Note ---
Progress Note Date of Service Oct 26, 2016. Progress Note Allison Stern PHOTOTYPESETTING EQUIPMENT MONITOR -I Responed to an overhead code blue in patient room 308 whom I had previously rounded on around 720am. At that time the patient was comfortable in bed wearing nasal cannula. The patient was in no apparent distress and responded appropriately. When asked about his experience with anesthesia, he responded "I didn't have any pain and I had a great experience. Thank you". Upon entering room 308 a little before 0900am in response to the code blue, the patient was in the hospital bed. Respirations were assisted by staff with bag mask 100% 02. Patient had spontaneous circulation and I was told received a dose of epinephrine prior to my arrival. The patient became more responsive for a few moments and displayed agonal breathing efforts. It was decided that the patient needed an advanced airway to continue further cardiopulmonary support. The patient was again assisted with the Ambu bag 100% O2 while preparation of intubating equipment occurred. Respirations with the bag mask were of good quality 2 provider technique. C02 detector displayed co2 throughout mask ventilation. The first attempt with a Glidescope #4 blade was unsuccessful as the patient was still spontaneously moving. The patient was given 100mg succinylcholine and again assisted with bag mask and oral airway until fasiculation and apnea occurred. At that time the patient was successfully intubated with an 8.0 tube to 24cm at the teeth under video laryngoscopy. The vocal cords looked clear of gastric contents on video laryngoscopy. C02 and bilateral breath sounds were present. The ETT was secured at 24 cm and I was no longer involved in the care of the patient following the intubation.
--- NOTE | 2016-10-26 12:06 | Progress Note ---
Progress Note Date of Service Oct 26, 2016. Progress Note I was the anesthesiologist for this patient yesterday for a lumbar decompression and fusion L3-S1. He had no history of cardiopulmonary disease and had an uneventful intra-op and immediate post-op anesthetic course. Intubation was easy. Pre-op Hgb was 17.4. Estimated blood loss was 900 mL which is certainly in the expected range for the aforementioned procedure and is not an amount that would cause a drop of Hgb to an unsafe level given the patient's starting Hgb and his weight. Blood loss was replaced intraoperatively with a combination of crystalloid and colloid. See anesthesia record for more details. Post-op Hgb this morning was 12. Intra-op and PACU vitals were stable. The patient's WBC count was elevated at 17.8k on pre-op testing. This was evaluated by the pt's PCP pre-op and was attributed to steroids that the patient had been receiving for his back. We rechecked a CBC on the day of surgery and WBC was down to 16k. I again evaluated the patient for signs and symptoms of infection pre-op and found none (no fever, chills, cough, urinary symptoms, and the patient said he felt fine). Jeffrey Stern CRNA saw the patient earlier this AM as part of routine post-op rounds. At the time, the patient was reportedly laying in bed in no apparent distress, without any complaint, pleased with his anesthesia care. Please see Jeffrey's two notes in the medical record for further details. I was in the OR providing anesthesia for a Caesarean section this morning when I heard the overhead page for a Code Purple, followed by a Code Blue. I was unaware for whom these codes were called at the time. I finished the and co-signed the post-op notes for the patients that Jeffrey saw this morning, including the note on this patient. Again, at the time, I was unaware of any event involving this patient. Later this morning, Jeffrey notified me that the patient had coded after he had seen the patient early in the morning. I went to see the patient in the ICU and found that he had .
--- NOTE | 2016-10-26 16:40 | Progress Note ---
Progress Note Date of Service Oct 26, 2016. Progress Note responded to Code Purple in room 308 patient seen sitting up in bed, on a facemask, expressing he has a hard time breathing o2 sats 69%, clear breath sounds bilaterally i ordered for code blue to be called patient noted to be unresponsive, no pulse chest compressions and ambu bag ordered monitor showing asystole as well, 1 dose of epi ordered Dr. Chin then arrived and ran the code, Anesthesiology SVC also at bedside Dr. Gunter also arrived and led the ACLS Jose F Corcoran MD
[2016-10-27] MEDS ORDERED: POLYETHYLENE (MIRALAX) 17 GM PACK PO SCH (06:00)
--- NOTE | 2016-11-02 12:53 | DISCHARGE SUMMARY ---
SUBJECTIVE: The patient entered the hospital on 10/25/2016 with a preoperative diagnosis of spinal stenosis, herniated nucleus pulposus with spondylolisthesis. The patient underwent lumbar decompression with instrumented fusion L3-S1, interbody fusion L3-L4 and L5-S1. Postoperatively, on postoperative day 0 patient did well, pain improved. Postoperative day 1, lab values H\H were 12.0 and 36.0 respectively. White count was 23.23 respectively. He was up and talking to his and then when he went to the restroom had some shortness of breath. The nurse placed him back in bed. They called a code purple. He then went unresponsive and code blue was called. Code team was called. They started chest compressions, but unfortunately the patient had . PAST MEDICAL HISTORY: The patient's medical history is significant for GERD, gout, psoriasis. PAST SURGICAL HISTORY: Significant for knee replacement, hernia repair. ALLERGIES: Not listed. MEDICATIONS: Per chart. Any further questions can be found on his chart for review. EFRA
== END 2016-10-26 09:25 | disposition expired | DRG 459 ==
LOC: ENRESERVTM → ENRESERVDT → C.ACU 07:48 → C.3E 09:30 → C.MSICU 10-26 09:10 → C.3E 10-26 09:10
PROVIDERS: ADMIT Orthopaedic Surgery Orthopaedic Surgery of the Spine; ATTEND Orthopaedic Surgery Orthopaedic Surgery of the Spine
PROC: 01NB0ZZ Release Lumbar Nerve, Open Approach (ICD-10-PCS; principal; 2016-10-25 09:45)
PROC: 0SG00AJ Fusion of Lumbar Vertebral Joint with Interbody Fusion Device, Posterior Approach, Anterior Column, Open Approach (ICD-10-PCS; principal; 2016-10-25 09:45)
PROC: 0ST40ZZ Resection of Lumbosacral Disc, Open Approach (ICD-10-PCS; principal; 2016-10-25 09:45)
PROC: 0ST20ZZ Resection of Lumbar Vertebral Disc, Open Approach (ICD-10-PCS; principal; 2016-10-25 09:45)
PROC: 0SG1071 Fusion of 2 or more Lumbar Vertebral Joints with Autologous Tissue Substitute, Posterior Approach, Posterior Column, Open Approach (ICD-10-PCS; principal; 2016-10-25 09:45)
PROC: 0SH00BZ Insertion of Interspinous Process Spinal Stabilization Device into Lumbar Vertebral Joint, Open Approach (ICD-10-PCS; principal; 2016-10-25 09:45)
PROC: 0SG3071 Fusion of Lumbosacral Joint with Autologous Tissue Substitute, Posterior Approach, Posterior Column, Open Approach (ICD-10-PCS; principal; 2016-10-25 09:45)
PROC: 3E0V0GB Introduction of Recombinant Bone Morphogenetic Protein into Bones, Open Approach (ICD-10-PCS; principal; 2016-10-25 09:45)
PROC: 0SG30AJ Fusion of Lumbosacral Joint with Interbody Fusion Device, Posterior Approach, Anterior Column, Open Approach (ICD-10-PCS; principal; 2016-10-25 09:45)
PROC: 0BH18EZ Insertion of Endotracheal Airway into Trachea, Via Natural or Artificial Opening Endoscopic (ICD-10-PCS; 2016-10-26)
PROC: 5A12012 Performance of Cardiac Output, Single, Manual (ICD-10-PCS; 2016-10-26)
DX: M48.06 Spinal stenosis, lumbar region (principal); I97.121 Postprocedural cardiac arrest following other surgery; I26.99 Other pulmonary embolism without acute cor pulmonale; I82.441 Acute embolism and thrombosis of right tibial vein; I82.413 Acute embolism and thrombosis of femoral vein, bilateral; M43.16 Spondylolisthesis, lumbar region; M43.17 Spondylolisthesis, lumbosacral region; K21.9 Gastro-esophageal reflux disease without esophagitis; M10.9 Gout, unspecified; L40.9 Psoriasis, unspecified; Z96.659 Presence of unspecified artificial knee joint; F17.220 Nicotine dependence, chewing tobacco, uncomplicated; I10 Essential (primary) hypertension; E78.5 Hyperlipidemia, unspecified